=== PATIENT | female | born 1980 | race Two or more races ===

== ENCOUNTER 2024-02-29 21:00 | Emergency (ER) | payer MEDICAID, OTHER ==
[~2024-02-29] VITALS: Ht 157.5 cm; Wt 69.8 kg
[2024-02-29 22:01] LABS: Urine Bacteria FEW /hpf (None Seen); Urine Blood TRACE /uL (Negative); Urine Clarity Clear (Clear); Urine Color Light-Yellow (Yellow); Urine Protein, UAD Negative (Negative); Urine Specific Gravity 1.013 (1.001-1.035); Urine Urobilinogen Normal (Negative); Urine WBC 1 /hpf (0 - 5); Urine pH 6.5 (5.0-9.0)
[2024-02-29 22:15] LABS: Basophils # (auto) 0.1 10 ^3/uL (0-0.2); Eosinophils # (auto) 0.1 10 ^3/uL (0-0.8); Eosinophils % (auto) 1.3 % (0.0-7.0); Hematocrit 42.7 % (36.0-46.0); Hemoglobin 14.6 g/dL (12.2-16.2); Lymphocytes # (auto) 2.9 10 ^3/uL (0.4-5.4); Lymphocytes % (auto) 37.7 % (10.0-50.0); Mean Corpuscular Hemoglobin 32.5 pg (28.0-32.0); Mean Corpuscular Hgb Conc. 34.3 g/dL (32.0-36.0); Mean Corpuscular Volume 94.8 fL (80.0-100.0); Monocytes # (auto) 0.5 10 ^3/uL (0-1.3); Monocytes % (auto) 6.9 % (0.0-12.0); Neutrophils % (auto) 53.1 % (37.0-80.0); Red Cell Distribution Width 12.9 % (11.8-14.3); White Blood Cell 7.6 10^3/uL (4.4-10.8)
[2024-02-29 22:30] LABS: Alanine Aminotransferase 20 U/L (7-40); Alkaline Phosphatase 64 U/L (46-116); Anion Gap 5 (5-15); Aspartate Aminotransferase 12 U/L (13-40); BUN/Creatinine Ratio 15.1 (10.0-20.0); Blood Urea Nitrogen 13 mg/dL (9-23); Calcium 9.4 mg/dL (8.7-10.4); Carbon Dioxide 26 mmol/L (20-30); Chloride 110 mmol/L (98-107); Glucose 93 mg/dL (74-106); Potassium 4.2 mmol/L (3.5-5.1); Sodium 141 mmol/L (136-145)
[2024-02-29 22:31] LABS: Albumin 4.1 g/dL (3.2-4.8); Bilirubin, Total 0.5 mg/dL (0.2-1.0); Total Protein 6.7 g/dL (5.7-8.2)
[2024-02-29 22:45] VITALS: PULSE 90; RESP 12; O2SAT 98
[2024-03-01 03:35] VITALS: BP 169/76; PULSE 68; RESP 14; TEMP 97.8; O2SAT 99
[2024-03-01] MEDS ORDERED: MECL12.586 PO (04:15)
== END 2024-03-01 04:32 | disposition home or self-care (01) ==
LOC: ER 21:00
DX: R42 Dizziness and giddiness (principal); R51.9 Headache, unspecified; E11.9 Type 2 diabetes mellitus without complications; M54.50 Low back pain, unspecified
CPT/HCPCS: 36415; 70450; 71045; 80053; 81001; 84484; 85025; 93005

== ENCOUNTER 2024-03-23 13:17 | Emergency (ER) | payer MEDICAID ==
[~2024-03-23] VITALS: Ht 167.6 cm; Wt 140.0 kg
[~2024-03-23 13:17] MED LIST: MECL12.586 PO
[2024-03-23 13:29] VITALS: BP 176/91; TEMP 99.1
[2024-03-23 14:39] VITALS: PULSE 109; RESP 18; O2SAT 99
[2024-03-23] MEDS: ACETAMINOPHEN 500 MG TAB PO ONE (14:59)
[2024-03-23] MEDS ORDERED: IBUP-1454 PO (15:15)
[2024-03-23] MEDS ORDERED: BACL10TA PO (15:15)
== END 2024-03-23 14:55 | disposition home or self-care (01) ==
LOC: ER 13:17 → EDBD 13:17 → ER 14:55
DX: S16.1XXA Strain of muscle, fascia and tendon at neck level, initial encounter (principal); S46.911A Strain of unspecified muscle, fascia and tendon at shoulder and upper arm level, right arm, initial encounter; R51.9 Headache, unspecified; E11.9 Type 2 diabetes mellitus without complications; V43.62XA Car passenger injured in collision with other type car in traffic accident, initial encounter; Y93.89 Activity, other specified; Y92.488 Other paved roadways as the place of occurrence of the external cause; Y99.8 Other external cause status
CPT/HCPCS: 70450; 72125; 73030